=== PATIENT | female | born 2000 | race Two or more races ===

== ENCOUNTER 2021-02-15 21:01 | Emergency (ER) | payer OTHER ==
[~2021-02-15] VITALS: Ht 157.5 cm; Wt 48.1 kg
[2021-02-15] MEDS ORDERED: PRENATAL + DHA1 EAC1 (21:45)
[2021-02-16] MEDS ORDERED: CEPHALEXIN500 M1 PO (05:29)
== END 2021-02-16 05:40 ==
LOC: ER 21:01
DX: N39.0 Urinary tract infection, site not specified (principal); R10.2 Pelvic and perineal pain; Z3A.09 9 weeks gestation of pregnancy

== ENCOUNTER 2021-02-17 04:28 | Emergency (ER) | payer OTHER ==
[~2021-02-17] VITALS: Ht 160 cm; Wt 46.7 kg
[~2021-02-17 04:28] MED LIST: CEPHALEXIN500 M1 PO; PRENATAL + DHA1 EAC1
== END 2021-02-17 10:45 | disposition home or self-care (01) ==
LOC: ER 04:28
DX: O20.0 Threatened abortion (principal); Z3A.09 9 weeks gestation of pregnancy

== ENCOUNTER 2021-03-15 22:32 | Emergency (ER) | payer OTHER ==
[~2021-03-15] VITALS: Ht 154.9 cm; Wt 50.8 kg
[2021-03-15] MEDS ORDERED: ACIDO FOLICO (22:59)
== END 2021-03-16 05:23 ==
LOC: ER 22:32
DX: O20.8 Other hemorrhage in early pregnancy (principal); Z3A.14 14 weeks gestation of pregnancy; M54.5 Low back pain

== ENCOUNTER 2021-05-27 05:42 | Inpatient (IN) | payer OTHER ==
[~2021-05-27] VITALS: Ht 157.5 cm; Wt 58.5 kg
[~2021-05-27 05:42] MED LIST changes: +ACIDO FOLICO
== END 2021-05-29 10:26 | disposition home or self-care (01) | DRG 833 ==
LOC: OBS/DEL 05:42 → LDR 11:20 → OB/GYN 19:27
PROVIDERS: ADMIT Obstetrics & Gynecology; ATTEND Obstetrics & Gynecology
PROC: BY4CZZZ Ultrasonography of Second Trimester, Single Fetus (ICD-10-PCS; principal; 2021-05-27)
DX: O46.8X2 Other antepartum hemorrhage, second trimester (principal); Z3A.23 23 weeks gestation of pregnancy

== ENCOUNTER 2021-06-22 07:18 | Outpatient (CLI) | payer OTHER | END 2021-06-22 13:50 | disposition home or self-care (01) | LOC: OBS/DEL 07:18 | PROVIDERS: ATTEND Student in an Organized Health Care Education/Training Program | DX: O60.02 Preterm labor without delivery, second trimester (principal); Z3A.27 27 weeks gestation of pregnancy ==

== ENCOUNTER 2021-08-01 05:54 | Inpatient (IN) | payer OTHER ==
[~2021-08-01] VITALS: Ht 160 cm; Wt 65.8 kg
[2021-08-05] MEDS ORDERED: Tylenol #3 PO (09:00)
[2021-08-05] MEDS ORDERED: NAPR500T14 PO (09:00)
== END 2021-08-05 10:27 | disposition home or self-care (01) | DRG 786 ==
LOC: OB/GYN 05:54 → LDR 05:54 → OB/GYN 08-02 06:00 → LDR 08-02 10:33 → OB/GYN 08-02 16:47
PROVIDERS: ADMIT Obstetrics & Gynecology; ATTEND Obstetrics & Gynecology
PROC: 4A1HXCZ Monitoring of Products of Conception, Cardiac Rate, External Approach (ICD-10-PCS; 2021-08-01)
PROC: BY4FZZZ Ultrasonography of Third Trimester, Single Fetus (ICD-10-PCS; 2021-08-01)
PROC: BU4CZZZ Ultrasonography of Uterus and Ovaries (ICD-10-PCS; 2021-08-01)
PROC: 10D00Z1 Extraction of Products of Conception, Low, Open Approach (ICD-10-PCS; principal; 2021-08-02 03:30)
DX: O32.1XX0 Maternal care for breech presentation, not applicable or unspecified (principal); O60.14X0 Preterm labor third trimester with preterm delivery third trimester, not applicable or unspecified; O14.03 Mild to moderate pre-eclampsia, third trimester; O26.843 Uterine size-date discrepancy, third trimester; O36.5130 Maternal care for known or suspected placental insufficiency, third trimester, not applicable or unspecified; Z3A.33 33 weeks gestation of pregnancy; Z20.822 Contact with and (suspected) exposure to COVID-19; Z37.0 Single live birth

== ENCOUNTER 2024-05-15 10:48 | Emergency (ER) | payer OTHER ==
[~2024-05-15] VITALS: Ht 157.5 cm; Wt 54.4 kg
[~2024-05-15 10:48] MED LIST changes: +NAPR500T14 PO; +Tylenol #3 PO
[2024-05-15 13:39] LABS: HEMATOCRIT 32.5 % (36.0-45.00); HEMOGLOBIN 10.9 g/dL (12.0-15.00); MEAN CELL VOLUME 82.6 fL (80.00-100.00); MEAN CORPUSCULAR HEMOGLOBIN 27.8 pg (27.00-32.0); MEAN CORPUSCULAR HGB CONC 33.7 g/dl (32.0-36.0); PLATELET COUNT 210 K/uL (150-450); RED BLOOD COUNT 3.94 M/uL (4.00-6.00); RED CELL DISTRIBUTION WIDTH 16.1 % (11.5-14.5)
== END 2024-05-15 13:56 | disposition home or self-care (01) ==
LOC: ER 10:50
PROVIDERS: General Practice
DX: B34.9 Viral infection, unspecified (principal); Z20.822 Contact with and (suspected) exposure to COVID-19